=== PATIENT | female | born 1940 | race Caucasian/White ===

== ENCOUNTER 2016-09-04 17:48 | Emergency (ER) | payer MEDICARE, OTHER ==
[~2016-09-04 17:48] MED LIST: ALOE VESTA141 GM TP; ASCORBIC ACID250 MG PO; ASPIR 8181 MG PO; ASPIRIN EC81 MG PO; ATORVASTATIN CA10 MG PO; AUGMENTIN875 MG PO; BENICAR20 MG PO; BENICAR40 MG PO; CALCIUM WITH V1 EAC1 PO; COUMADIN1 MG PO; CYMBALTA30 MG PO; DEPAKOTE SPRIN125 MG PO; DULCOLAX-DPS10 MG PR; EFFEXOR37.5 MG PO; ELIQUIS5 MG PO; EXELON PATCH9.5 MG TD; FEOSOL-DPS325 MG PO; FIORICET DPS1 TAB PO; FLONASE 0.05% D16 GM NS; IMODIUM DPS2 MG PO; KLOR-CON M2020 ME1 PO; LEVAQUIN DPS750 MG PO; LIPITOR DPS20 MG PO; MAALOX DPS30 ML PO; MIRALAX DPS17 GM PO; MUCINEX600 MG PO; NAMENDA5 MG PO; NEURONTIN DPS300 MG PO; NORCO 5-325 TA1 EACH PO; NORTRIPTYLINE H25 MG PO; OMEGA-3 DPS1000 MG PO; PRILOSEC DPS20 MG PO; PROLIA60 MG/ML SQ; PROVIGIL200 MG PO; RITALIN-DPS5 MG PO; SENOKOT S1 TAB PO; SPORTS CREAM85 GM TP; SURFAK DPS240 MG PO; SYSTANE 0.3-0.1 EACH OU; TEARS NATURAL D15 ML OU; TYLENOL DPS325 MG PO; ULTRAM DPS50 MG PO; VALIUM-DPS2 MG PO; VITAMIN D1000 UNI1 PO; VOLTAREN 1% GE100 GM TP
--- NOTE | 2016-09-05 01:47 | ER ---
ADMIT: 09/04/2016 RM/LOC: ER [facility] MR#: [id number] [address] [id number] [place] [address] Emergency Room Report SEX: F AGE: 75 : 1940 DATE: 09/04/2016 The patient is a 75-year-old female, status post recent hospitalization for stroke. States she is having increased difficulty ambulating, confusion. Denies any fevers, chills, vomiting, or urinary symptoms. Does admit to increasing diarrhea and constant headache. Exam remarkable for nontoxic, afebrile, slightly confused female, ambulates well with walker. CT head negative except for age-related atrophy. EKG shows sinus rhythm with left bundle unchanged. Chest x-ray, negative. Hemoglobin 10.9, CRP less than 0.29, troponin 0.039, procalcitonin less than 0.05, BN peptide 3142. UA negative. The patient discharged home in care of , daughter. Strongly recommend active rehabilitation program to regain independence. Follow up with Dr. Ellington in next week. Mikel Quesada MD/ salmal JOB #: [id number] CC: Gab Zeng MD, Attending Physician Tiffany Ellington MD, Family Physician Tiffany Ellington MD
== END 2016-09-04 22:54 | disposition home or self-care (01) ==
LOC: ER 17:48
DX: R53.1 Weakness (principal); I10 Essential (primary) hypertension; E78.5 Hyperlipidemia, unspecified; Z86.73 Personal history of transient ischemic attack (TIA), and cerebral infarction without residual deficits; Z79.01 Long term (current) use of anticoagulants; Z79.899 Other long term (current) drug therapy; Z88.5 Allergy status to narcotic agent; Z86.79 Personal history of other diseases of the circulatory system; Z90.710 Acquired absence of both cervix and uterus